=== PATIENT | male | born 1940 | race Caucasian/White ===

== ENCOUNTER 2017-11-14 16:39 | Inpatient (IN) | payer MEDICARE ==
[~2017-11-14] VITALS: Ht 167.6 cm; Wt 96.8 kg
[2017-11-14 17:00] VITALS: BP 148/79; PULSE 74; RESP 16; TEMP 98.8; O2SAT 98
--- NOTE | 2017-11-14 17:00 | RADRPT ---
EXAM DATE/TIME: 11/14/2017 16:43 [facility] COMPARISON: No previous studies available for comparison. INDICATIONS : Stroke alert. RADIATION DOSE: 63.86 CTDIvol (mGy) MEDICAL HISTORY : Non-responsive. SURGICAL HISTORY : Non-responsive. ENCOUNTER: Initial ACUITY: 1 day PAIN SCALE: 0/10 LOCATION: cranial TECHNIQUE: Multiple contiguous axial images were obtained of the head. Using automated exposure control and adj ustment of the mA and/or kV according to patient size, radiation dose was kept as low as reasonably a chievable to obtain optimal diagnostic quality images. DICOM format image data is available electro nically for review and comparison. FINDINGS: CEREBRUM: There is mild generalized atrophy. Ventricles are normal in size. There is mild to moderate periventr icular white matter low attenuation. No evidence of midline shift, mass lesion, hemorrhage or acute infarction. No extra-axial fluid collections are seen. POSTERIOR FOSSA: The cerebellum and brainstem demonstrate no acute finding. The 4th ventricle is midline. The cerebe llopontine angle is unremarkable. EXTRACRANIAL: There is rim mucoperiosteal thickening within the ethmoid sinus and right maxillary antrum. SKULL: The calvaria is intact. No evidence of skull fracture. CONCLUSION: 1. No acute intracranial abnormality is identified. 2. Chronic changes include mild generalized atrophy and mild to moderate white matter changes charact eristic of chronic microvascular ischemia. Flo Clay MD on November 14, 2017 at 16:54 Board Certified Radiologist. This report was verified electronically.
--- NOTE | 2017-11-14 17:04 | PD ---
HPI Chief Complaint: Stroke Alert Time Seen by Provider: 16:47 Travel History International Travel<30 days: No Contact w/Intl Traveler<30days: No History of Present Illness HPI Stroke alert. 77-year-old male with prediabetes hypertension hyperlipidemia and previous TIA reports a headache last night. When he awoke this morning he felt unsteady. Proceeded to the urgent care for evaluation. After evaluation he experienced left-sided weakness, left-sided facial numbness and a [facility] was called. While [facility] was drawing blood symptoms resolved. NIH scale now 0. Patient is not on blood thinners. Patient does not take aspirin. PFSH Social History Tobacco Use: No Review of Systems General / Constitutional: No: Fever Eyes: No: Visual changes HENT: No: Headaches Cardiovascular: No: Chest Pain or Discomfort Respiratory: No: Shortness of Breath Gastrointestinal: No: Abdominal Pain Genitourinary: No: Dysuria Musculoskeletal: No: Pain Skin: No Rash Neurologic: Positive: Weakness, Slurred Speech, Sensory Disturbance Psychiatric: No: Depression Endocrine: No: Polydipsia Hematologic/Lymphatic: No: Easy Bruising Physical Exam Narrative Initial evaluation NIH scale of 0 GENERAL: Well-nourished, well-developed patient. SKIN: Focused skin assessment warm/dry. HEAD: Normocephalic. EYES: No scleral icterus. No injection or drainage. NECK: Supple, trachea midline. No JVD or lymphadenopathy. CARDIOVASCULAR: Regular rate and rhythm without murmurs, gallops, or rubs. RESPIRATORY: Breath sounds equal bilaterally. No accessory muscle use. GASTROINTESTINAL: Abdomen soft, non-tender, nondistended. MUSCULOSKELETAL: No cyanosis, or edema. BACK: Nontender without obvious deformity. No CVA tenderness. Data Data Orders Orders Cath For Specimen (11/14/17 16:47) Neuro Checks Q2HX12,Q4H (11/14/17 16:47) Nursing Bedside Swallow Assess .ONCE (11/14/17 16:47) Activity Bed Rest (11/14/17 16:47) Diet Npo (11/14/17 Dinner) Prothrombin Time / Inr (Pt) (11/14/17 16:47) Act Partial Throm Time (Ptt) (11/14/17 16:47) Complete Blood Count With Diff (11/14/17 16:47) Basic Metabolic Panel (Bmp) (11/14/17 16:47) Fibrinogen (11/14/17 16:47) Creatine Kinase (Cpk) (11/14/17 16:47) Troponin I (11/14/17 16:47) Ua Includes Microscopic (11/14/17 16:47) Drug Screen, Random Urine (11/14/17 16:47) Type And Screen (11/14/17 16:47) Ct Brain W/O Iv Contrast(Rout) (11/14/17 ) Cta Brain W Iv Contrast W 3d (11/14/17 16:47) Cta Neck W Iv Contrast W 3d (11/14/17 16:47) Electrocardiogram (11/14/17 ) Consult Neurology (11/14/17 16:47) Blood Glucose (11/14/17 16:47) Ecg Monitoring (11/14/17 16:47) Iv Access Insert/Monitor (11/14/17 16:47) NPO (11/14/17 16:47) Oximetry (11/14/17 16:47) Resp Oxygen Nc Stroke (11/14/17 ) (Hub Use Only)Inp Phy Cons/Ref (11/14/17 ) Admit Order (Ed Use Only) (11/14/17 ) [employer] Customer Service / Telemetry GIULIA.Q8H (11/14/17 17:05) Vital Signs (Adult) Q4H (11/14/17 17:05) Diet 1999 Ada Cons Carb (11/14/17 Dinner) Activity Oob With Assistance (11/14/17 17:05) Notify Dr: Other (11/14/17 17:05) Labs Laboratory Tests Test 11/14/17 16:55 11/14/17 17:00 White Blood Count 7.2 TH/MM3 Red Blood Count 4.97 MIL/MM3 Hemoglobin 15.4 GM/DL Hematocrit 44.2 % Mean Corpuscular Volume 88.8 FL Mean Corpuscular Hemoglobin 31.0 PG Mean Corpuscular Hemoglobin Concent 34.8 % Red Cell Distribution Width 13.2 % Platelet Count 222 TH/MM3 Mean Platelet Volume 8.1 FL Neutrophils (%) (Auto) 60.1 % Lymphocytes (%) (Auto) 27.5 % Monocytes (%) (Auto) 9.1 % Eosinophils (%) (Auto) 2.9 % Basophils (%) (Auto) 0.4 % Neutrophils # (Auto) 4.3 TH/MM3 Lymphocytes # (Auto) 2.0 TH/MM3 Monocytes # (Auto) 0.7 TH/MM3 Eosinophils # (Auto) 0.2 TH/MM3 Basophils # (Auto) 0.0 TH/MM3 CBC Comment DIFF FINAL Differential Comment MDM Medical Decision Making Medical Screen Exam Complete: Yes Emergency Medical Condition: Yes Differential Diagnosis TIA, CVA, cephalgia Narrative Course Assessment and plan discussed with the patient at bedside. Patient was taken directly to CT. CT revealed chronic changes without acute intracranial process , discussed with radiology. Case discussed with who is aware. ABCD2 score 5, moderate risk for CVA. EKG reveals sinus rhythm rate of 72. Physician Communication Physician Communication Spoke to Dr Palomino who is in agreement will admit with neurology consult Diagnosis Primary Impression: TIA (transient ischemic attack) Qualified Codes: G45.9 - Transient cerebral ischemic attack, unspecified Modesto Milan MD Nov 14, 2017 17:04
[2017-11-14 17:05] LABS: AUTOMATED NEUTROPHIL # 4.3 TH/MM3 (1.8-7.7); BASOPHIL % 0.4 % (0.0-2.0); EOSINOPHIL # 0.2 TH/MM3 (0-0.4); EOSINOPHIL % 2.9 % (0.0-4.0); HEMATOCRIT 44.2 % (39.0-51.0); HEMOGLOBIN 15.4 GM/DL (13.0-17.0); LYMPH % 27.5 % (9.0-44.0); MEAN CELL VOLUME 88.8 FL (80.0-100.0); MEAN CORPUSCULAR HGB CONC 34.8 % (32.0-36.0); MEAN PLATELET VOLUME 8.1 FL (7.0-11.0); MONO % 9.1 % (0.0-8.0); MONOCYTE # 0.7 TH/MM3 (0-0.9); NEUT % 60.1 % (16.0-70.0); PLATELET COUNT 222 TH/MM3 (150-450); RED BLOOD COUNT 4.97 MIL/MM3 (4.50-5.90); RED CELL DISTRIBUTION WIDTH 13.2 % (11.6-17.2); WHITE BLOOD COUNT 7.2 TH/MM3 (4.0-11.0)
[2017-11-14 17:10] VITALS: O2SAT 98
[2017-11-14 17:10] LABS: BILIRUBIN, URINE NEG (NEG); BLOOD, URINE NEG (NEG); GLUCOSE,URINE 250 mg/dL (NEG); KETONE, URINE NEG (NEG); NITRITE,URINE NEG (NEG); PH, URINE 5.5 (5.0-8.5); URINE LEUKOCYTE ESTERASE NEG (NEG)
[2017-11-14 17:19] LABS: CHLORIDE 104 MEQ/L (98-107); SODIUM (NA) 138 MEQ/L (136-145)
[2017-11-14 17:21] LABS: RBC, URINE 0-3 /hpf (0-3); SQUAMOUS EPITHELIAL CELL URINE 0-5 /hpf (0-5); URINE COLOR YELLOW (YELLW/STRAW); WBC, URINE 0-2 /hpf (0-5)
[2017-11-14 17:22] LABS: BLOOD UREA NITROGEN 17 MG/DL (7-18); CALCIUM 8.6 MG/DL (8.5-10.1); GLUCOSE,RANDOM 226 MG/DL (74-106)
[2017-11-14 17:25] LABS: PROTHROMBIN TIME - PATIENT 10.2 SEC (9.8-11.6)
[2017-11-14 17:26] LABS: GLOMERULAR FILTRATION RATE 65 ML/MIN (>89)
[2017-11-14 17:30] LABS: TROPONIN I LESS THAN 0.02 NG/ML (0.02-0.05)
[2017-11-14 18:05] VITALS: BP 139/74; PULSE 68; RESP 14; O2SAT 96
[2017-11-14] MEDS ORDERED: AMLO5 PO (18:05)
[2017-11-14] MEDS ORDERED: OMEP40CA2 PO (18:05)
[2017-11-14 18:30] VITALS: BP 159/75; PULSE 73; RESP 20; TEMP 96.9; O2SAT 97
[2017-11-14] MEDS ORDERED: DEXTROSE 50% IN WATER 50 ML VIAL(D50) IV PUSH PRN (19:00)
[2017-11-14] MEDS ORDERED: GLUCAGON 1 MG/ML VIAL OTHER PRN (19:00)
[2017-11-14] MEDS ORDERED: ENALAPRILAT 1.25 MG/ML VIAL IV PUSH PRN (19:00)
[2017-11-14] MEDS ORDERED: LABETALOL HCL 100 MG/20 ML VIAL IV PUSH PRN (19:00)
--- NOTE | 2017-11-14 19:07 | HHI.HP ---
[facility]Staff Ad[facility] Diagnosis TIA Diagnoses: Chief Complaint: left arm and leg weakness and numbness with left facial droop Travel History International Travel<30 Days: No Contact w/Intl Traveler <30 Da: No Traveled to Known Affected Are: No History of Present Illness 77 years old male who is a borderline diabetic hypertension hyperlipidemia presented to the ED with a stroke alert, patient felt all of a sudden numb in his left arm and leg along with left facial droop, called paramedics who called stroke alert, however write to patient Rx to the hospital symptoms improved, ED physician consulted neurology who recommended admission to medical team and place a consultation, patient received aspirin he never had a history history of stroke in the past, his brother has a history of stroke 5 years ago. Patient is a nonsmoker currently and NIH scale is 0 Review of Systems Except as stated in HPI: all other systems reviewed are Neg All systems reviewed and was positive for what is mentioned in history of present illness otherwise negative Past Family Social History Past Medical History Hypertension GERD Past Surgical History Appendix in childhood Allergies: Coded Allergies: No Known Allergies (Unverified , 11/14/17) Family History Brother had a stroke 5 years ago Social History Denied tobacco alcohol or illicit drug abuse Physical Exam Vital Signs Vital Signs Date Time Temp Pulse Resp B/P (MAP) Pulse Ox O2 Delivery O2 Flow Rate FiO2 11/14/17 18:15 11/14/17 18:05 68 14 139/74 (95) 96 Room Air 11/14/17 17:10 98 Room Air 11/14/17 17:10 98 Room Air 11/14/17 17:00 98.8 74 16 148/79 (102) 98 Physical Exam GENERAL: This is a well-nourished, well-developed patient, in no apparent distress. SKIN: No rashes, ecchymoses or lesions. Cool and dry. HEAD: Atraumatic. Normocephalic. No temporal or scalp tenderness. EYES: Pupils equal round and reactive. Extraocular motions intact. No scleral icterus. No injection or drainage. ENT: Nose without bleeding, purulent drainage or septal hematoma. Throat without erythema, tonsillar hypertrophy or exudate. Uvula midline. Airway patent. NECK: Trachea midline. No JVD or lymphadenopathy. Supple, nontender, no meningeal signs. CARDIOVASCULAR: Regular rate and rhythm without murmurs, gallops, or rubs. RESPIRATORY: Clear to auscultation. Breath sounds equal bilaterally. No wheezes , rales, or rhonchi. GASTROINTESTINAL: Abdomen soft, non-tender, nondistended. No hepato-splenomegaly , or palpable masses. No guarding. MUSCULOSKELETAL: Extremities without clubbing, cyanosis, or edema. No joint tenderness, effusion, or edema noted. No calf tenderness. Negative Homans sign bilaterally. NEUROLOGICAL: Awake and alert. Cranial nerves II through XII intact. Motor and sensory grossly within normal limits. Five out of 5 muscle strength in all muscle groups. Normal speech. Laboratory Laboratory Tests Test 11/14/17 16:55 11/14/17 17:00 White Blood Count 7.2 Red Blood Count 4.97 Hemoglobin 15.4 Hematocrit 44.2 Mean Corpuscular Volume 88.8 Mean Corpuscular Hemoglobin 31.0 Mean Corpuscular Hemoglobin Concent 34.8 Red Cell Distribution Width 13.2 Platelet Count 222 Mean Platelet Volume 8.1 Neutrophils (%) (Auto) 60.1 Lymphocytes (%) (Auto) 27.5 Monocytes (%) (Auto) 9.1 Eosinophils (%) (Auto) 2.9 Basophils (%) (Auto) 0.4 Neutrophils # (Auto) 4.3 Lymphocytes # (Auto) 2.0 Monocytes # (Auto) 0.7 Eosinophils # (Auto) 0.2 Basophils # (Auto) 0.0 CBC Comment DIFF FINAL Differential Comment Prothrombin Time 10.2 Prothromb Time International Ratio 1.0 Activated Partial Thromboplast Time 25.9 Fibrinogen 375 Blood Urea Nitrogen 17 Creatinine 1.10 Random Glucose 226 Calcium Level 8.6 Sodium Level 138 Potassium Level 3.3 Chloride Level 104 Carbon Dioxide Level 27.0 Anion Gap 7 Estimat Glomerular Filtration Rate 65 Total Creatine Kinase 149 Troponin I LESS THAN 0.02 Urine Collection Type CATH Urine Color YELLOW Urine Turbidity CLEAR Urine pH 5.5 Urine Specific [place] 1.028 Urine Protein TRACE Urine Glucose (UA) 250 Urine Ketones NEG Urine Occult Blood NEG Urine Nitrite NEG Urine Bilirubin NEG Urine Leukocyte Esterase NEG Urine RBC 0-3 Urine WBC 0-2 Urine Squamous Epithelial Cells 0-5 Urine Oval Fat Bodies Urine Collection Time 17:00 Urine Opiates Screen NEG Urine Barbiturates Screen NEG Urine Amphetamines Screen NEG Urine Benzodiazepines Screen NEG Urine Cocaine Screen NEG Urine Cannabinoids Screen NEG Result Diagram: 11/14/17 1655 11/14/17 1655 Imaging Last Impressions Head CT 11/14/17 0000 Signed Impressions: Service Date/Time: Tuesday, November 14, 2017 16:43 - CONCLUSION: 1. No acute intracranial abnormality is identified. 2. Chronic changes include mild generalized atrophy and mild to moderate white matter changes characteristic of chronic microvascular ischemia. MD Abilio Nguyen VTE Risk Assessment Caprini VTE Risk Assessment: Mod/High Risk (score >= 2) Caprini Risk Assessment Model Point Value = 1 Point Value = 2 Point Value = 3 Point Value = 5 Age 41-60 Minor surgery BMI > 25 kg/m2 Swollen legs Varicose veins or History of unexplained or recurrent spontaneous Oral contraceptives or hormone replacement Sepsis (< 1 month) Serious lung disease, including pneumonia (< 1 month) Abnormal pulmonary function Acute myocardial infarction Congestive heart failure (< 1 month) History of inflammatory bowel disease Medical patient at bed rest Age 61-74 Arthroscopic surgery Major open surgery (> 45 min) Laparoscopic surgery (> 45 min) Malignancy Confined to bed (> 72 hours) Immobilizing plaster cast Central venous access Age >= 75 History of VTE Family history of VTE Factor V Leiden Prothrombin [id number] Lupus anticoagulant Anticardiolipin antibodies Elevated serum homocysteine Heparin-induced thrombocytopenia Other congenital or acquired thrombophilia Stroke (< 1 month) Elective arthroplasty Hip, pelvis, or leg fracture Acute spinal cord injury (< 1 month) Prophylaxis Regimen Total Risk Factor Score Risk Level Prophylaxis Regimen 0-1 Low Early ambulation 2 Moderate Order ONE of the following: *Sequential Compression Device (SCD) *Heparin 5000 units SQ BID 3-4 Higher Order ONE of the following medications: *Heparin 5000 units SQ TID *Enoxaparin/Lovenox 40 mg SQ daily (WT < 150 kg, CrCl > 30 mL/min) *Enoxaparin/Lovenox 30 mg SQ daily (WT < 150 kg, CrCl > 10-29 mL/min) *Enoxaparin/Lovenox 30 mg SQ BID (WT < 150 kg, CrCl > 30 mL/min) AND/OR *Sequential Compression Device (SCD) 5 or more Highest Order ONE of the following medications: *Heparin 5000 units SQ TID (Preferred with Epidurals) *Enoxaparin/Lovenox 40 mg SQ daily (WT < 150 kg, CrCl > 30 mL/min) *Enoxaparin/Lovenox 30 mg SQ daily (WT < 150 kg, CrCl > 10-29 mL/min) *Enoxaparin/Lovenox 30 mg SQ BID (WT < 150 kg, CrCl > 30 mL/min) AND *Sequential Compression Device (SCD) Assessment and Plan Assessment and Plan 77 years old male with history of hypertension and GERD came with Acute left facial droop with left upper or lower extremity weakness and numbness which resolved rule out TIA Hypertension GERD DVT prophylaxis Plan: Admit for observation Telemetry NIH scale and neuro check Activate TIA protocol Carotid ultrasound 2-D echo Holter monitor Neurology consulted CT of the brain Without contrast personally reviewed by me showed No acute intracranial abnormality is identified. 2. Chronic changes include mild generalized atrophy and mild to moderate white matter changes characteristic of chronic microvascular ischemia. CTA of the neck and CT of the brain ordered Neurology to decide on MRI Will do a tentatively permissive hypertension Resume his lisinopril in a.m. Omeprazole Heparin and SCD for DVT prophylaxis Discussed Condition With patient in ED physician Jalen Palomino MD Nov 14, 2017 19:07
[2017-11-14] MEDS: SODIUM CHLOR 0.9% 1000 ML INJ 1,000 ML IV SCH (20:04)
[2017-11-14] MEDS: INSULIN ASPART SUPPLEMENTAL SCALE SQ SCH (20:05)
[2017-11-14] MEDS: HEPARIN SODIUM - SQ 10,000 UNITS/ML VIAL SQ SCH (20:08)
--- NOTE | 2017-11-14 21:11 | EKG ---
Date Performed: 11/14/2017 Time Performed: 17:02:32 PTAGE: 77 years EKG: Sinus rhythm NORMAL ECG NO PREVIOUS TRACING DOCTOR: Martínez Medeiros Interpretating Date/Time 11/14/2017 21:10:15
[2017-11-14 23:00] VITALS: PULSE 79
[2017-11-15] VITALS (9 sets, daily range): BP systolic 135–155; BP diastolic 77–89; PULSE 72–83; RESP 14–20; TEMP 96.3–97.1; O2SAT 92–96
[2017-11-15] MEDS: HEPARIN SODIUM - SQ 10,000 UNITS/ML VIAL SQ SCH ×3 (06:07→21:01)
[2017-11-15] MEDS: INSULIN ASPART SUPPLEMENTAL SCALE SQ SCH ×4 (09:02→21:00)
[2017-11-15] MEDS: PANTOPRAZOLE SOD 40 MG DELAYED RELEASE TAB PO SCH (09:05)
[2017-11-15] MEDS: ASPIRIN 81 MG CHEW TAB PO SCH (09:05)
[2017-11-15] MEDS: SODIUM CHLOR 0.9% 1000 ML INJ 1,000 ML IV SCH ×2 (09:10→21:02)
[2017-11-15 09:56] LABS: CHOLESTEROL/ HDL RATIO 6.11 RATIO; HDL CHOLESTEROL 36.3 MG/DL (40.0-60.0)
[2017-11-15 12:28] LABS: HEMOGLOBIN A1C 7.4 % (4.3-6.0)
--- NOTE | 2017-11-15 12:35 | RADRPT ---
EXAM DATE/TIME: 11/15/2017 11:35 [facility] COMPARISON: No previous studies available for comparison. INDICATIONS : Cerebrovascular accident. MEDICAL HISTORY : Hypertension. Gastroesophageal reflux disease. Cerebrovascular accident. SURGICAL HISTORY : Appendectomy. ENCOUNTER: Initial ACUITY: 1 day PAIN SCORE: 0/10 LOCATION: Bilateral neck PEAK SYSTOLIC VELOCITIES (cm/sec): ICA/CCA RATIO: Right: 0.9 Left: 0.5 ICA: Right: 70 Left: 50 CCA: Right: 76 Left: 91 ECA: Right: 77 Left: 85 VERTEBRAL: Right: 52 antegrade Left: 37 antegrade Elevated flow velocities and ICA/CCA ratios have been found to correlate with increased degrees of vessel stenosis, calculated as percentage of diameter relative to a normal segment of distal ICA/CCA FINDINGS: RIGHT CAROTID: No significant stenosis is visualized. The waveforms are within normal limits. LEFT CAROTID: No significant stenosis is visualized. The waveforms are within normal limits. VERTEBRAL ARTERIES: Antegrade flow is seen in both vertebral arteries. MISCELLANEOUS: None. CONCLUSION: No significant stenosis is seen. Flo De Luna MD on November 15, 2017 at 12:33 Board Certified Radiologist. This report was verified electronically.
--- NOTE | 2017-11-15 13:21 | HHI.PR ---
Subjective Remarks Resting comfortably in bed No event overnight Denied chest and or short of breath No fever or chills Objective Vitals Vital Signs Date Time Temp Pulse Resp B/P (MAP) Pulse Ox O2 Delivery O2 Flow Rate FiO2 11/15/17 12:00 96.3 75 14 153/83 (106) 96 11/15/17 08:23 92 11/15/17 08:00 96.9 73 16 151/89 (109) 95 11/15/17 00:00 97.1 72 20 139/81 (100) 95 11/14/17 23:00 79 11/14/17 20:00 21 11/14/17 18:30 96.9 73 20 159/75 (103) 97 11/14/17 18:15 11/14/17 18:05 68 14 139/74 (95) 96 Room Air 11/14/17 17:10 98 Room Air 11/14/17 17:10 98 Room Air 11/14/17 17:00 98.8 74 16 148/79 (102) 98 I/O 11/14/17 11/14/17 11/14/17 11/15/17 11/15/17 11/15/17 07:00 15:00 23:00 07:00 15:00 23:00 Intake Total 0 ml Output Total 1275 ml Balance -1275 ml Intake Oral 0 ml Output Urine Total 1275 ml # Voids 7 # Bowel Movements 0 Result Diagram: 11/14/17 1655 11/14/17 1655 Imaging Last Impressions Head CT 11/14/17 0000 Signed Impressions: Service Date/Time: Tuesday, November 14, 2017 16:43 - CONCLUSION: 1. No acute intracranial abnormality is identified. 2. Chronic changes include mild generalized atrophy and mild to moderate white matter changes characteristic of chronic microvascular ischemia. Flo Clay MD Objective Remarks GENERAL: This is a well-nourished, well-developed patient, in no apparent distress. SKIN: No rashes, ecchymoses or lesions. Cool and dry. HEAD: Atraumatic. Normocephalic. No temporal or scalp tenderness. EYES: Pupils equal round and reactive. Extraocular motions intact. No scleral icterus. No injection or drainage. ENT: Nose without bleeding, purulent drainage or septal hematoma. Throat without erythema, tonsillar hypertrophy or exudate. Uvula midline. Airway patent. NECK: Trachea midline. No JVD or lymphadenopathy. Supple, nontender, no meningeal signs. CARDIOVASCULAR: Regular rate and rhythm without murmurs, gallops, or rubs. RESPIRATORY: Clear to auscultation. Breath sounds equal bilaterally. No wheezes , rales, or rhonchi. GASTROINTESTINAL: Abdomen soft, non-tender, nondistended. No hepato-splenomegaly , or palpable masses. No guarding. MUSCULOSKELETAL: Extremities without clubbing, cyanosis, or edema. No joint tenderness, effusion, or edema noted. No calf tenderness. Negative Homans sign bilaterally. NEUROLOGICAL: Awake and alert. Cranial nerves II through XII intact. Motor and sensory grossly within normal limits. Five out of 5 muscle strength in all muscle groups. Normal speech. A/P Assessment and Plan 77 years old male with history of hypertension and GERD came with Acute left facial droop with left upper or lower extremity weakness and numbness which resolved rule out TIA Hypertension GERD DVT prophylaxis Plan: Telemetry NIH scale and neuro check Activate TIA protocol Carotid ultrasound 2-D echo Holter monitor Awaiting neurology consultation CT of the brain Without contrast personally reviewed by me showed No acute intracranial abnormality is identified. 2. Chronic changes include mild generalized atrophy and mild to moderate white matter changes characteristic of chronic microvascular ischemia. CTA of the neck and CT of the brain pending Neurology to decide on MRI Will do a tentatively permissive hypertension Resume his lisinopril in a.m. Omeprazole Heparin and SCD for DVT prophylaxis Jalen Palomino MD Nov 15, 2017 13:21
--- NOTE | 2017-11-15 17:45 | MB ---
cc: VALDEMAR BOONE M.D. DATE OF CONSULTATION 11/15/2017 HISTORY OF THE PRESENT ILLNESS He is a 77-year-old came in as a stroke alert last evening. I spoke to the ED physician Dr. Milan. The patient developed some left-sided weakness which was apparently quite severe. His noticed that he could not raise his arm or leg and the face was quite drooped. It lasted only 5 or 10 minutes. He recovered quickly. He had not been feeling well before this happened as he felt lethargic and had some difficulty focusing, etc. His neurologic history is essentially benign. He admits being prediabetic. He did not take any aspirin or blood thinners. PAST MEDICAL HISTORY 1. He has a history of hypertension. 2. And gastroesophageal reflux disease. NEUROLOGIC EXAMINATION A few hours ago was completely normal at bedside. There is no difficulty with speech. Reflexes were trace at the ankles, 1+ at the knees. Normal strength with the upper extremities. Visual murillo full. ASSESSMENT Presumed TIA causing left-sided weakness. Workup so far includes an LDL being 158 and glucose being 226. CT scan of the head was negative. CTA head and neck pending. I am requesting an MRI brain. Continue aspirin and a statin. Statin to be initiated. Possibly be discharged tomorrow. He has been in sinus rhythm. Echocardiogram also needed though this could even be obtained as an outpatient as he is doing so well. Thank you for asking us to assist in his care. MD SCOOTER Peng/CHAVEZ /5:23 PM /5:29 PM
--- NOTE | 2017-11-15 17:46 | ECHRPT ---
Indication: CONCLUSIONS The left ventricular systolic function is low normal with an estimated ejection fraction in the rang e of 50- 55%. Wall thickness is normal. Normal left ventricular size. The left atrial size is mildly dilated. Mild mitral valve regurgitation. Trace aortic valve regurgitation. The pulmonary valve is not well visualized. BP: / HR: Rhythm: MEASUREMENTS (Male / Female) Normal Values Technical Quality: 2D ECHO LV Diastolic Diameter PLAX 4.5 cm 4.2 - 5.9 / 3.9 - 5.3 cm LV Systolic Diameter PLAX 3.6 cm IVS Diastolic Thickness 1.1 cm 0.6 - 1.0 / 0.6 - 0.9 cm LVPW Diastolic Thickness 1.1 cm 0.6 - 1.0 / 0.6 - 0.9 cm LV Relative Wall Thickness 0.5 LVOT Diameter 2.4 cm M-MODE Aortic Root Diameter MM 3.2 cm LA Systolic Diameter MM 4.2 cm LA Ao Ratio MM 1.3 AV Cusp Separation MM 1.5 cm DOPPLER AV Peak Velocity 160.0 cm/s AV Peak Gradient 10.2 mmHg AI Peak Velocity 317.0 cm/s AI Peak Gradient 40.2 mmHg AI Pressure Half Time 612.0 ms LVOT Peak Velocity 99.2 cm/s LVOT Peak Gradient 3.9 mmHg AV Area Cont Eq pk 2.8 cm MR Peak Velocity 368.0 cm/s MR Peak Gradient 54.2 mmHg Mitral E Point Velocity 105.0 cm/s Mitral A Point Velocity 107.0 cm/s Mitral E to A Ratio 1.0 LV E' Lateral Velocity 7.0 cm/s Mitral E to LV E' Lateral Ratio 15.0 LV E' Septal Velocity 5.4 cm/s Mitral E to LV E' Septal Ratio 19.6 PV Peak Velocity 118.0 cm/s PV Peak Gradient 5.6 mmHg FINDINGS LEFT VENTRICLE The left ventricular systolic function is low normal with an estimated ejection fraction in the rang e of 50- 55%. Wall thickness is normal. Normal left ventricular size. RIGHT VENTRICLE Normal right ventricular size and systolic function. LEFT ATRIUM The left atrial size is mildly dilated. RIGHT ATRIUM The right atrial size is normal. ATRIAL SEPTUM Normal atrial septal thickness without atrial level shunting by limited color doppler interrogation. AORTA The aortic root and proximal ascending aorta are normal in size on limited imaging. MITRAL VALVE Mild mitral valve regurgitation. AORTIC VALVE Trace aortic valve regurgitation. TRICUSPID VALVE Structurally normal tricuspid valve. No tricuspid valve stenosis or regurgitation. PULMONARY VALVE The pulmonary valve is not well visualized. VESSELS The inferior vena cava is normal in size. PERICARDIUM No pericardial effusion. Nicholas Schneider MD, FACC (Electronically Signed) Final Date:15 November 2017 17:45
[2017-11-15] MEDS: ATORVASTATIN 40 MG TAB PO SCH (21:01)
[2017-11-16] VITALS (8 sets, daily range): BP systolic 126–158; BP diastolic 54–96; PULSE 54–80; RESP 16–20; TEMP 96.1–97.3; O2SAT 95–97
[2017-11-16] MEDS: HEPARIN SODIUM - SQ 10,000 UNITS/ML VIAL SQ SCH ×3 (06:17→21:02)
[2017-11-16] MEDS: INSULIN ASPART SUPPLEMENTAL SCALE SQ SCH ×4 (08:00→21:02)
--- NOTE | 2017-11-16 08:45 | HHI.PR ---
Review/Management Daily Summary 11/16 no sx recurrence exam normal pending MR and CTA Subjective Subjective Comments No acute events reported No headache Active Medications Current Medications Medications (Trade) Dose Ordered Sig/Arianna Route Start Time Stop Time Status Last Admin Sodium Chloride 1,000 ml @ 70 mls/hr [id number] IV 11/14/17 18:54 11/15/17 21:02 (Vasotec Inj) 1.25 mg Q4H PRN IV PUSH 11/14/17 19:00 (Trandate Inj) 10 mg Q2H PRN IV PUSH 11/14/17 19:00 (Aspirin Chew) 81 mg DAILY PO 11/15/17 09:00 11/15/17 09:05 (NovoLOG SUPPLEMENTAL SCALE) 1 ACHS SQ 11/14/17 21:00 11/15/17 17:04 (D50w (Vial) Inj) 50 ml UNSCH PRN IV PUSH 11/14/17 19:00 (Glucagon Inj) 1 mg UNSCH PRN OTHER 11/14/17 19:00 (Heparin Inj) 5,000 units Q8HR SQ 11/14/17 22:00 11/16/17 06:17 (Protonix) 40 mg DAILY PO 11/15/17 09:00 11/15/17 09:05 (Lipitor) 40 mg HS PO 11/15/17 21:00 11/15/17 21:01 Allergies Allergies Coded Allergies No Known Allergies (Unverified11/14/17) Exam I&O / VS Vital Signs Date Time Temp Pulse Resp B/P (MAP) Pulse Ox O2 Delivery O2 Flow Rate FiO2 11/16/17 08:03 95 21 11/16/17 08:00 96.1 75 16 148/86 (106) 96 11/16/17 04:00 96.9 69 18 141/68 (92) 96 11/16/17 00:00 96.7 80 20 158/79 (105) 95 11/15/17 23:00 74 11/15/17 20:00 97.1 74 20 135/77 (96) 95 11/15/17 20:00 95 21 11/15/17 16:00 97.0 83 14 155/89 (111) 96 11/15/17 15:00 82 11/15/17 12:00 96.3 75 14 153/83 (106) 96 Objective Radiology Results Last 48 hours Impressions Carotid Artery Ultrasound 11/15/17 0000 Signed Impressions: Service Date/Time: Wednesday, November 15, 2017 11:35 - CONCLUSION: No significant stenosis is seen. MD Avery Villalba Olimpio F. MD Nov 16, 2017 08:45
[2017-11-16] MEDS: ASPIRIN 81 MG CHEW TAB PO SCH (09:04)
[2017-11-16] MEDS: PANTOPRAZOLE SOD 40 MG DELAYED RELEASE TAB PO SCH (09:04)
--- NOTE | 2017-11-16 09:25 | HHI.PR ---
Subjective Remarks 77 years old male who is a borderline diabetic hypertension hyperlipidemia presented to the ED with a stroke alert, patient felt all of a sudden numb in his left arm and leg along with left facial droop, called paramedics who called stroke alert, however write to patient Rx to the hospital symptoms improved, ED physician consulted neurology who recommended admission to medical team and place a consultation, patient received aspirin he never had a history history of stroke in the past, his brother has a history of stroke 5 years ago. Patient is a nonsmoker currently and NIH scale is 0 2-25 Resting comfortably in bed No event overnight Denied chest and or short of breath No fever or chills 2-26 [facility] NEUROLOGY WANTS CTA OF BRAIN AND NECK PRIOR TO DC MRI TODAY WAS ABNORMAL MAKE FULL ADMIT HOPEFULLY HOME TOMORROW IF NEGATIVE NO NEW COMPLAINTS Objective Vitals Vital Signs Date Time Temp Pulse Resp B/P (MAP) Pulse Ox O2 Delivery O2 Flow Rate FiO2 11/16/17 08:03 95 21 11/16/17 08:00 96.1 75 16 148/86 (106) 96 11/16/17 04:00 96.9 69 18 141/68 (92) 96 11/16/17 00:00 96.7 80 20 158/79 (105) 95 11/15/17 23:00 74 11/15/17 20:00 97.1 74 20 135/77 (96) 95 11/15/17 20:00 95 21 11/15/17 16:00 97.0 83 14 155/89 (111) 96 11/15/17 15:00 82 11/15/17 12:00 96.3 75 14 153/83 (106) 96 I/O 11/15/17 11/15/17 11/15/17 11/16/17 11/16/17 11/16/17 07:00 15:00 23:00 07:00 15:00 23:00 Intake Total 0 ml 1000 ml 1110 ml 240 ml Output Total 1275 ml 900 ml Balance -1275 ml 1000 ml 1110 ml -660 ml Intake Oral 0 ml 480 ml 240 ml IV Total 1000 ml 630 ml Output Urine Total 1275 ml 900 ml # Voids 7 5 # Bowel Movements 0 0 0 Result Diagram: 11/14/17 1655 11/14/17 1655 Other Results Laboratory Tests Test 11/14/17 16:55 11/14/17 17:00 11/15/17 06:36 White Blood Count 7.2 TH/MM3 Red Blood Count 4.97 MIL/MM3 Hemoglobin 15.4 GM/DL Hematocrit 44.2 % Mean Corpuscular Volume 88.8 FL Mean Corpuscular Hemoglobin 31.0 PG Mean Corpuscular Hemoglobin Concent 34.8 % Red Cell Distribution Width 13.2 % Platelet Count 222 TH/MM3 Mean Platelet Volume 8.1 FL Neutrophils (%) (Auto) 60.1 % Lymphocytes (%) (Auto) 27.5 % Monocytes (%) (Auto) 9.1 % Eosinophils (%) (Auto) 2.9 % Basophils (%) (Auto) 0.4 % Neutrophils # (Auto) 4.3 TH/MM3 Lymphocytes # (Auto) 2.0 TH/MM3 Monocytes # (Auto) 0.7 TH/MM3 Eosinophils # (Auto) 0.2 TH/MM3 Basophils # (Auto) 0.0 TH/MM3 CBC Comment DIFF FINAL Differential Comment Prothrombin Time 10.2 SEC Prothromb Time International Ratio 1.0 RATIO Activated Partial Thromboplast Time 25.9 SEC Fibrinogen 375 mg/dL Blood Urea Nitrogen 17 MG/DL Creatinine 1.10 MG/DL Random Glucose 226 MG/DL Calcium Level 8.6 MG/DL Sodium Level 138 MEQ/L Potassium Level 3.3 MEQ/L Chloride Level 104 MEQ/L Carbon Dioxide Level 27.0 MEQ/L Anion Gap 7 MEQ/L Estimat Glomerular Filtration Rate 65 ML/MIN Hemoglobin A1c 7.4 % Total Creatine Kinase 149 U/L Troponin I LESS THAN 0.02 NG/ML Urine Collection Type CATH Urine Color YELLOW Urine Turbidity CLEAR Urine pH 5.5 Urine Specific [place] 1.028 Urine Protein TRACE mg/dL Urine Glucose (UA) 250 mg/dL Urine Ketones NEG mg/dL Urine Occult Blood NEG Urine Nitrite NEG Urine Bilirubin NEG Urine Leukocyte Esterase NEG Urine RBC 0-3 /hpf Urine WBC 0-2 /hpf Urine Squamous Epithelial Cells 0-5 /hpf Urine Oval Fat Bodies Urine Collection Time 17:00 Urine Opiates Screen NEG Urine Barbiturates Screen NEG Urine Amphetamines Screen NEG Urine Benzodiazepines Screen NEG Urine Cocaine Screen NEG Urine Cannabinoids Screen NEG Triglycerides Level 138 MG/DL Cholesterol Level 222 MG/DL LDL Cholesterol 158 MG/DL HDL Cholesterol 36.3 MG/DL Cholesterol/HDL Ratio 6.11 RATIO Imaging Last Impressions Carotid Artery Ultrasound 11/15/17 0000 Signed Impressions: Service Date/Time: Wednesday, November 15, 2017 11:35 - CONCLUSION: No significant stenosis is seen. Flo De Luna MD Head CT 11/14/17 0000 Signed Impressions: Service Date/Time: Tuesday, November 14, 2017 16:43 - CONCLUSION: 1. No acute intracranial abnormality is identified. 2. Chronic changes include mild generalized atrophy and mild to moderate white matter changes characteristic of chronic microvascular ischemia. Flo Clay MD Objective Remarks GENERAL: SKIN: Warm and dry. HEAD: Atraumatic. Normocephalic. EYES: Pupils equal and round. No scleral icterus. No injection or drainage. ENT: No nasal bleeding or discharge. Mucous membranes pink and moist. NECK: Trachea midline. No JVD. CARDIOVASCULAR: Regular rate and rhythm. RESPIRATORY: No accessory muscle use. Clear to auscultation. Breath sounds equal bilaterally. GASTROINTESTINAL: Abdomen soft, non-tender, nondistended. Hepatic and splenic margins not palpable. MUSCULOSKELETAL: Extremities without clubbing, cyanosis, or edema. No obvious deformities. NEUROLOGICAL: Awake and alert. No obvious cranial nerve deficits. Motor grossly within normal limits. Five out of 5 muscle strength in the arms and legs. Normal speech. PSYCHIATRIC: Appropriate mood and affect; insight and judgment normal. Procedures NONE Medications and IVs Current Medications Sodium Chloride 1,000 ml @ 70 mls/hr [id number] IV Last administered on at 21:02; Start 11/14/17 at 18:54 Enalaprilat (Vasotec Inj) 1.25 mg Q4H PRN IV PUSH For SBP > 220 or DBP > 120; Start 11/14/17 at 19:00 Labetalol HCl (Trandate Inj) 10 mg Q2H PRN IV PUSH For SBP > 220 or DBP > 120; Start 11/14/17 at 19:00 Aspirin (Aspirin Chew) 81 mg DAILY PO Last administered on 11/16/17at 09:04; Start 11/15/17 at 09:00 Insulin Aspart (NovoLOG SUPPLEMENTAL SCALE) 1 ACHS SQ Last administered on 11/15at 17:04; Start 11/14/17 at 21:00 Dextrose (D50w (Vial) Inj) 50 ml UNSCH PRN IV PUSH HYPOGLYCEMIA-SEE COMMENTS; Start 11/14/17 at 19:00 Glucagon (Glucagon Inj) 1 mg UNSCH PRN OTHER HYPOGLYCEMIA-SEE COMMENTS; Start 11/14/17 at 19:00 Heparin Sodium (Porcine) (Heparin Inj) 5,000 units Q8HR SQ Last administered on 11/16/17at 06:17; Start 11/14/17 at 22:00 Pantoprazole Sodium (Protonix) 40 mg DAILY PO Last administered on 11/16/17at 09 :04; Start 11/15/17 at 09:00 Atorvastatin Calcium (Lipitor) 40 mg HS PO Last administered on 11/15/17at 21:01 ; Start 11/15/17 at 21:00 Diphenhydramine HCl (Benadryl) 25 mg ONCE ONCE PO Last administered on at 00:08; Start 11/16/17 at 00:00; Stop 11/16/17 at 00:06; Status DC A/P Assessment and Plan 77 years old male with history of hypertension and GERD came with Acute left facial droop with left upper or lower extremity weakness and numbness which resolved rule out TIA Hypertension GERD DVT prophylaxis Plan: Telemetry NIH scale and neuro check Activate TIA protocol Carotid ultrasound 2-D echo Holter monitor Awaiting neurology consultation CT of the brain Without contrast personally reviewed by me showed No acute intracranial abnormality is identified. 2. Chronic changes include mild generalized atrophy and mild to moderate white matter changes characteristic of chronic microvascular ischemia. CTA of the neck and CT of the brain MRA OF BRAIN WAS ABNORMAL--[facility] NEUROLOGY WANTS CTA OF HEAD AND NECK ANGIOGRAM Will do a tentatively permissive hypertension Resume his lisinopril in a.m. Omeprazole Heparin and SCD for DVT prophylaxis Discharge Planning PENDING CLEARANCE OF NEUROLOGY WITH CTAS OF HEAD AND NECK Andrez Arroyo DO Nov 16, 2017 09:25
--- NOTE | 2017-11-16 12:24 | RADRPT ---
EXAM DATE/TIME: 11/16/2017 11:33 [facility] COMPARISON: No previous studies available for comparison. INDICATIONS : TIA. Left sided numbness with facial droop, right sided vision change since Thursday. MEDICAL HISTORY : Hypertension. SURGICAL HISTORY : Appendectomy. ENCOUNTER: Initial ACUITY: 3 day PAIN SCORE: 1/10 LOCATION: Right eye. Please note a normal MRA of the brain does not entirely exclude the possibility of a small aneurysm, nor the possibility of distal intracranial vessel disease. TECHNIQUE: 3D time of flight MRA was performed. Source images, multiplanar STS MIP, and 3D volume MIP reconstru ctions were reviewed. FINDINGS: There are findings of fairly severe multifocal cerebrovascular steno-occlusive disease with critical concentric stenosis at the origin of the left anterior cerebral artery A1 segment. The vessel beyond this is well enhanced and normal in appearance. In the posterior circulation, there is severe concent roge stenosis involving the inferior aspect of the basilar artery, high-grade stenosis at the origin o f the left posterior cerebral artery and moderate stenosis in the proximal P2 segment of the right po sterior cerebral artery. There is no evidence of major vessel occlusion. No aneurysm or vascular malf ormation is identified. 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 This report was verified electronically.
[2017-11-16] MEDS: amLODIPine BESYLATE 5 MG TAB PO SCH (12:45)
[2017-11-16] MEDS: SODIUM CHLOR 0.9% 1000 ML INJ 1,000 ML IV SCH (12:49)
[2017-11-16] MEDS ORDERED: CLOPIDOGREL 75 MG TAB PO ONE (14:00)
--- NOTE | 2017-11-16 14:33 | HM ---
Date Performed: 11/14/2017 Time Performed: 20:05:00 HOOKUP DATE: 11/14/17 08:05:00 PM Sat ANALYSIS START TIME: 11/14/2017 8:10:00 PM ANALYSIS END TIME: 11/15/2017 8:14:00 PM PATIENT AGE: 77 PATIENT HEIGHT: 68 PATIENT WEIGHT: 205 DRUG LIST PATIENT DIAGNOSIS: stroke symptoms TEST NARRATIVE: The patient's average heart rate was 76 BPM. Heart rates greater than 120 B PM were noted 1% of the time. No episodes of bradycardia were noted. No pauses exceeding 2.0 sec onds were noted. 100 ventricular ectopics, which represented < 1% of the total beat count, were n oted. The highest ventricular ectopic frequency occurred from 06:00 PM to 07:00 PM Sun. During this time 62 VE(s) occurred. Ventricular ectopics were observed as 98 isolated beat(s) and as 1 couplet( s). No runs were noted. 2983 supraventricular ectopics, which represented 3% of the total beat c ount, were noted. The highest supraventricular ectopic frequency occurred from 06:00 PM to 07:00 PM Sun. During this time 1023 SVE(s) occurred. No episodes of ST depression (defined as -1.0 mm or more) were noted in channel 1. No episodes of ST depression (defined as -1.0 mm or more) were noted in channel 2. No episodes of ST depression (defined as -1.0 mm or more) were noted in channel 3. NO ENTRIES IN DIARY TEST INTERPRETATION: Agree with the dictation. Signed by : Anthony Jacome
[2017-11-16] MEDS ORDERED: IOHEXOL 350 MG/ML 10 ML VIAL (for RAD DIAG) IVCONTRAST ONE (17:14)
--- NOTE | 2017-11-16 18:12 | RADRPT ---
EXAM DATE/TIME: 11/16/2017 17:08 [facility] COMPARISON: No previous studies available for comparison. INDICATIONS : Previous stroke alert three days ago. IV CONTRAST: 75 cc Omnipaque 350 (iohexol) IV ; Cumulative dose for multiple exams. RADIATION DOSE: 43.16 CTDIvol (mGy) ; Combined studies MEDICAL HISTORY : Cerebrovascular disease. Hypertension. Gastroesophageal reflux disease. SURGICAL HISTORY : Appendectomy. ENCOUNTER: Subsequent ACUITY: 3 days PAIN SCALE: 0/10 LOCATION: neck Elevated flow velocities and ICA/CCA ratios have been found to correlate with increased degrees of vessel stenosis, calculated as percentage of diameter relative to a normal segment of distal ICA/CCA. TECHNIQUE: Volumetric scanning was performed using a multirow detector CT scanner. The data was post processed with a variety of visualization algorithms including full-volume maximum intensity projection, multip lanar sliding thin-slab reformation, curved-planar reformation, and surface-rendering techniques. Us ing automated exposure control and adjustment of the mA and/or kV according to patient size, radiatio n dose was kept as low as reasonably achievable to obtain optimal diagnostic quality images. DICOM f ormat image data is available electronically for review and comparison. FINDINGS: Great vessel origins are patent. Both vertebral arteries are patent within the neck. There is no significant stenosis in the common carotid artery or internal and external carotid arteri es bilaterally. Mild plaque around the carotid bifurcations. CONCLUSION: 1. Negative for carotid or vertebral stenosis. Great vessel origins are patent. See CTA head for intr acranial vasculature. Fredy Hughes MD on November 16, 2017 at 18:06 Board Certified Radiologist. This report was verified electronically.
--- NOTE | 2017-11-16 18:21 | RADRPT ---
EXAM DATE/TIME: 11/16/2017 17:08 [facility] COMPARISON: No previous studies available for comparison. INDICATIONS : Previous stroke alert three days ago. IV CONTRAST: 75 cc Omnipaque 350 (iohexol) IV ; Cumulative dose for multiple exams. RADIATION DOSE: 43.16 CTDIvol (mGy) ; Combined studies MEDICAL HISTORY : Cerebrovascular disease. Hypertension. Gastroesophageal reflux disease. SURGICAL HISTORY : Appendectomy. ENCOUNTER: Subsequent ACUITY: 3 days PAIN SCALE: 0/10 LOCATION: cranial TECHNIQUE: Volumetric scanning was performed using a multi-row detector CT scanner. The data was post processed with a variety of visualization algorithms including full volume maximum intensity projection, multi -planar sliding thin slab reformation, curved planar reformation, and surface rendering techniques. Using automated exposure control and adjustment of the mA and/or kV according to patient size, radiat ion dose was kept as low as reasonably achievable to obtain optimal diagnostic quality images. DICO M format image data is available electronically for review and comparison. FINDINGS: Correlation is made with the MRA. There is a focal moderate to severe stenosis in the proximal basila r artery. There is also a high-grade stenosis of the proximal left anterior cerebral artery. There is a high-grade stenosis in the proximal left posterior cerebral artery and a moderate stenosis in the right posterior cerebral artery. CONCLUSION: 1. Multifocal stenoses in the cerebral arterial vasculature as above. There is overall good correlati on with MRA findings. Fredy Hughes MD on November 16, 2017 at 18:15 Board Certified Radiologist. This report was verified electronically.
[2017-11-16] MEDS ORDERED: diphenhydrAMINE HCL 25 MG CAP PO ONE ×2 (20:30)
[2017-11-16] MEDS: ATORVASTATIN 40 MG TAB PO SCH (21:02)
[2017-11-17] VITALS: BP 144/14; PULSE 76; RESP 16; TEMP 97.9; O2SAT 96
[2017-11-17 04:00] VITALS: BP 139/90; PULSE 71; PULSE 77; RESP 16; TEMP 96; O2SAT 97
[2017-11-17] MEDS: SODIUM CHLOR 0.9% 1000 ML INJ 1,000 ML IV SCH ×2 (04:06→05:56)
[2017-11-17] MEDS: HEPARIN SODIUM - SQ 10,000 UNITS/ML VIAL SQ SCH (05:57)
[2017-11-17 08:00] VITALS: BP 150/88; PULSE 76; RESP 18; TEMP 97.1; O2SAT 95
[2017-11-17] MEDS: INSULIN ASPART SUPPLEMENTAL SCALE SQ SCH (08:00)
[2017-11-17 08:16] VITALS: PULSE 81
[2017-11-17] MEDS ORDERED: CLOPIDOGREL 75 MG TAB PO SCH (09:00)
[2017-11-17] MEDS: amLODIPine BESYLATE 5 MG TAB PO SCH (09:01)
[2017-11-17] MEDS: PANTOPRAZOLE SOD 40 MG DELAYED RELEASE TAB PO SCH (09:01)
[2017-11-17] MEDS: ASPIRIN 81 MG CHEW TAB PO SCH (09:01)
[2017-11-17] MEDS ORDERED: ASPI81 PO (09:29)
[2017-11-17] MEDS ORDERED: PLAV75TA29 PO (09:29)
[2017-11-17] MEDS ORDERED: ATOR40TA16 PO (09:29)
--- NOTE | 2017-11-17 09:31 | HHI.DCPOC ---
Discharge Care Plan Diagnosis: (1) Hyperlipidemia (2) TIA (transient ischemic attack) Goals to Promote Your Health * To prevent worsening of your condition and complications * To maintain your health at the optimal level Directions to Meet Your Goals Take your medications as prescribed Follow your dietary instruction Follow activity as directed Keep your appointments as scheduled Take your immunizations and boosters as scheduled If your symptoms worsen call your PCP, if no PCP go to Urgent Care Center or Emergency Room Smoking is Dangerous to Your Health. Avoid second hand smoke Call the 24-hour hour crisis hotline for domestic abuse at Jace Fairchild MD Nov 17, 2017 09:31
--- NOTE | 2017-11-17 09:35 | HHI.DS ---
Discharge Summary Admission Date Nov 16, 2017 at 16:34 Discharge Date: Nov 17, 2017 Admitting Diagnosis TIA (1) Hyperlipidemia ICD Code: E78.5 - Hyperlipidemia, unspecified (2) TIA (transient ischemic attack) ICD Code: G45.9 - Transient cerebral ischemic attack, unspecified Status: Acute Procedures NONE Brief History - From Admission 77 years old male who is a borderline diabetic hypertension hyperlipidemia presented to the ED with a stroke alert, patient felt all of a sudden numb in his left arm and leg along with left facial droop, called paramedics who called stroke alert, however write to patient Rx to the hospital symptoms improved, ED physician consulted neurology who recommended admission to medical team and place a consultation, patient received aspirin he never had a history history of stroke in the past, his brother has a history of stroke 5 years ago. Patient is a nonsmoker currently and NIH scale is 0 CBC/BMP: 11/14/17 1655 11/14/17 1655 Significant Findings Laboratory Tests Test 11/14/17 16:55 11/14/17 17:00 11/15/17 06:36 Monocytes (%) (Auto) 9.1 % (0.0-8.0) Random Glucose 226 MG/DL (74-106) Potassium Level 3.3 MEQ/L (3.5-5.1) Estimat Glomerular Filtration Rate 65 ML/MIN (>89) Hemoglobin A1c 7.4 % (4.3-6.0) Troponin I LESS THAN 0.02 NG/ML Urine Glucose (UA) 250 mg/dL (NEG) Cholesterol Level 222 MG/DL (120-200) LDL Cholesterol 158 MG/DL (0-99) HDL Cholesterol 36.3 MG/DL (40.0-60.0) Imaging Last Impressions Neck CTA 11/16/17 [id number] Signed Impressions: Service Date/Time: Thursday, November 16, 2017 17:08 - CONCLUSION: 1. Negative for carotid or vertebral stenosis. Great vessel origins are patent. See CTA head for intracranial vasculature. Fredy Hughes MD Head CTA 11/16/17 [id number] Signed Impressions: Service Date/Time: Thursday, November 16, 2017 17:08 - CONCLUSION: 1. Multifocal stenoses in the cerebral arterial vasculature as above. There is overall good correlation with MRA findings. Fredy Hughes MD Head Magnetic Resonance Angiography 11/16/17 0000 Signed Impressions: Service Date/Time: Thursday, November 16, 2017 11:33 - CONCLUSION: Multifocal significant cerebrovascular steno-occlusive disease findings as above Flo Diaz MD Carotid Artery Ultrasound 11/15/17 0000 Signed Impressions: Service Date/Time: Wednesday, November 15, 2017 11:35 - CONCLUSION: No significant stenosis is seen. Flo De Luna MD Head CT 11/14/17 0000 Signed Impressions: Service Date/Time: Tuesday, November 14, 2017 16:43 - CONCLUSION: 1. No acute intracranial abnormality is identified. 2. Chronic changes include mild generalized atrophy and mild to moderate white matter changes characteristic of chronic microvascular ischemia. Flo Clay MD PE at Discharge No facial droop, no slurred speech, 5 out of 5 proximal muscle strength bilaterally in UE and LEs Hospital Course Patient was admitted and started on permissive hypertension. His symptoms had largely resolved by the time of admission. Neurology was consulted. Imaging was performed which showed no hemodynamically stenotic carotid or vertebral arteries. Patient was noted to be very hyperlipidemic. He had an echocardiogram and Holter monitor report performed both of which were unremarkable. No stroke was identified on imaging. Patient has been maximal benefit from hospitalization and is clinically stable for discharge. Patient did report having some very mild intermittent visual changes in terms of color discrimination. He was counseled to avoid operating any heavy machinery or driving vehicles until he saw his neurologist and venipuncturist within the next 2 weeks. He was cleared by all 3 therapy modalities from needing any further therapy upon discharge. Pt Condition on Discharge: Stable Discharge Disposition: Discharge Home Discharge Time: <= 30 minutes Discharge Instructions DIET: Follow Instructions for: Heart Healthy Diet Activities you can perform: Weight Bearing as Ana Follow up Referrals: Neurology - 2 Weeks Ophthalmology - 2 Weeks PCP Follow-up - 2 Weeks New Medications: Aspirin (Tgt Aspirin) 81 Mg Chw 81 MG PO DAILY for stroke prevention, #30 EA Atorvastatin (Atorvastatin) 40 Mg Tab 40 MG PO HS for stroke prevention, #30 TAB Clopidogrel (Plavix) 75 Mg Tab 75 MG PO DAILY for stroke prevention, #30 TAB Continued Medications: Amlodipine (Norvasc) 5 Mg Tab 5 MG PO DAILY for Blood Pressure Management, #30 TAB 0 Refills Omeprazole (Omeprazole) 40 Mg Cap 40 MG PO DAILY, #30 CAP 0 Refills Jace Fairchild MD Nov 17, 2017 09:35
== END 2017-11-17 11:45 | disposition home or self-care (01) | DRG 69 ==
LOC: PHED 16:39 → INTOOBSV 17:07 → PHEDA 17:07 → PH3B 18:17 → OBSVTOIN 11-16 16:34
PROVIDERS: ADMIT Hospitalist; ATTEND Hospitalist
DX: G45.9 Transient cerebral ischemic attack, unspecified (principal); I10 Essential (primary) hypertension; R73.03 Prediabetes; E78.5 Hyperlipidemia, unspecified; R29.700 NIHSS score 0; K21.9 Gastro-esophageal reflux disease without esophagitis; Z82.3 Family history of stroke; Z86.73 Personal history of transient ischemic attack (TIA), and cerebral infarction without residual deficits
CPT/HCPCS: 70450; 70496; 70498; 70544; 80048; 80061; 80307; 81001; 82550; 82948; 83036; 84484; 85025; 85384; 85610; 85730; 86850; 86900; 86901; 93005; 93225; 93226; 93306; 93880; 96372; 99285; G0378; G8987-GO; G8988-GO; G8989-GO; J1644; J1815; J7030; Q9967